=== PATIENT | female | born 1950 | race Two or more races ===

== ENCOUNTER 2025-01-16 09:31 | Outpatient (CLI) | payer OTHER | END 2025-01-16 09:36 | disposition home or self-care (01) | LOC: MRI 09:31 | PROVIDERS: ATTEND Neuromusculoskeletal Medicine & OMM | DX: I72.9 Aneurysm of unspecified site (principal); I65.1 Occlusion and stenosis of basilar artery; I65.09 Occlusion and stenosis of unspecified vertebral artery; I65.29 Occlusion and stenosis of unspecified carotid artery; Q28.2 Arteriovenous malformation of cerebral vessels | CPT/HCPCS: 70545 ==